=== PATIENT | female | born 1980 | race American Indian/Alaskan Native ===

== ENCOUNTER 2021-09-05 11:26 | Emergency (ER) | payer SELFPAY | END 2021-09-05 14:58 | LOC: ED 11:26 | DX: R51.9 Headache, unspecified (principal); Z53.21 Procedure and treatment not carried out due to patient leaving prior to being seen by health care provider ==

== ENCOUNTER 2021-09-06 03:42 | Emergency (ER) | payer SELFPAY ==
[2021-09-06 04:44] LABS: Basophils % (Auto) 0.2 % (0.0-1.8); Eosinophils # (Auto) 0.1 K/mm3 (0.0-0.4); Eosinophils % (Auto) 0.9 % (0.0-4.3); Hematocrit 39.3 % (30.3-42.9); Hemoglobin 12.6 gm/dl (10.1-14.3); Lymphocytes # (Auto) 1.6 K/mm3 (1.2-5.4); Lymphocytes % (Auto) 9.7 % (13.4-35.0); Mean Corpuscular HGB Conc 32 % (30-34); Mean Corpuscular Volume 83 fl (79-97); Monocytes # (Auto) 1.3 K/mm3 (0.0-0.8); Monocytes % (Auto) 7.8 % (0.0-7.3); Platelet Count 450 K/mm3 (140-440); Red Blood Count 4.72 M/mm3 (3.65-5.03)
[2021-09-06 05:00] LABS: BUN/Creatinine Ratio 18; Blood Urea Nitrogen 16 mg/dL (7-17); Calcium 9.1 mg/dL (8.4-10.2); Hemolysis Index 7
[2021-09-06 06:18] LABS: Amphetamine Screen,Urine Negative; Benzodiazepines Screen,Urine Negative; Cannabinoid Screen,Urine Negative; Cocaine Screen,Urine Negative; Methadone Screen,Urine Negative; Opiate Screen,Urine Negative
[2021-09-06 06:22] LABS: Bacteria,Urine 1+ /HPF (Negative); Bilirubin,Urine NEG (Negative); Blood,Urine SM (Negative); Color,Urine Yellow (Yellow); Protein,Urine <15 mg/dL mg/dL (Negative); Urobilinogen,Urine < 2.0 mg/dL (<2.0)
--- NOTE | 2021-09-06 06:42 | Emergency Department Report ---
<SCOTTIE YIN - Last Filed: 09/06/21 12:28> ED Psych HPI - General Chief Complaint: Psych Stated Complaint: SUICIDAL IDEATIONS Time Seen by Provider: 09/06/21 06:10 Source: patient, EMS Mode of arrival: Ambulatory - History of Present Illness Initial Comments: 41-year-old female with a history of anxiety and depression who now presents wit h intermittent suicidal ideation has been going on for about 6 months. Patient says "I just do not want to live in this world anymore". No homicidal ideation reported. No other modifying or associated factors. - Related Data Previous Rx's Medication Instructions Recorded Last Taken Type Quetiapine Fumarate [SEROquel] 50 mg PO QHS 30 Days #30 09/07/21 Unknown Rx lamoTRIgine [LaMICtal] 100 mg PO QDAY 30 Days #30 tab 09/07/21 Unknown Rx Allergies Allergy/AdvReac Type Severity Reaction Status Date / Time No Known Allergies Allergy Verified 09/06/21 03:49 ED Review of Systems Comment: All other systems reviewed and negative Psychiatric: anxiety, depression, suicidal thoughts. denies: homicidal thoughts ED Past Medical Hx - Past Medical History Additional medical history: bipolar schizo - Medications Home Medications: Home Medications Medication Instructions Recorded Confirmed Last Taken Type Quetiapine Fumarate [SEROquel] 50 mg PO QHS 30 Days #30 09/07/21 Unknown Rx lamoTRIgine [LaMICtal] 100 mg PO QDAY 30 Days #30 tab 09/07/21 Unknown Rx ED Physical Exam - General Limitations: No Limitations General appearance: alert, in no apparent distress - Head Head exam: Present: atraumatic, normal inspection - Eye Eye exam: Present: normal appearance Pupils: Present: normal accommodation - ENT ENT exam: Present: normal exam - Neck Neck exam: Present: normal inspection - Respiratory Respiratory exam: Present: normal lung sounds bilaterally. Absent: respiratory distress, accessory muscle use - Cardiovascular Cardiovascular Exam: Present: regular rate, normal rhythm, normal heart sounds - GI/Abdominal GI/Abdominal exam: Present: soft, normal bowel sounds. Absent: distended, tenderness - Extremities Exam Extremities exam: Present: normal inspection, normal capillary refill - Back Exam Back exam: Absent: tenderness - Neurological Exam Neurological exam: Present: alert, oriented X3 - Psychiatric Psychiatric exam: Present: normal affect, normal mood - Skin Skin exam: Present: rash (right arm rash ) ED Course - Reevaluation(s) Reevaluation #1: 09/06/21 06:41 here with SI without any HI -- will go ahead and order routine psych workup and have patient seen by psychiatry this AM-- Reevaluation #2: 09/06/21 12:28 Pt seen by psych and agreed with 1013 -- and recommend medication treatment at this point ED Medical Decision Making - Lab Data Result diagrams: 09/06/21 04:02 09/06/21 04:02 ED Disposition Clinical Impression: Suicidal ideation Disposition: 01 HOME / SELF CARE / HOMELESS Is pt being admited?: No Does the pt Need Aspirin: No Condition: Stable Instructions: Suicidal Feelings: How to Help Yourself Additional Instructions: Professional and Agency Contacts To help [facility] (29/10) [place] Crisis Line: Suicide Prevention Line: Crisis Text Line: Text START to 174561 Emergency: 911 Outpatient [facility] Behavioral Health Resources: [facility]: [facility] [address], [place] [address] [facility] [address] [place] [address] Saturday thru Saturday - 8am - 5pm Call to schedule an assessment for mental health and substance abuse programs [facility] Address: [address] [place] [address] Saturday thru Saturday- 7am-2pm [facility] Address: [address] [place] [address] Saturday thru Saturday: 8:30AM-5PM Prescriptions: Quetiapine Fumarate [SEROquel] 50 mg PO QHS 30 Days #30 lamoTRIgine [LaMICtal] 100 mg PO QDAY 30 Days #30 tab Referrals: PRIMARY CARE, [Primary Care Provider] - 3-5 Days <CLIFTON BARKSDALE - Last Filed: 09/07/21 16:35> ED Review of Systems ROS: Stated complaint: SUICIDAL IDEATIONS Other details as noted in HPI ED Course Vital Signs 09/06/21 09/06/21 09/06/21 03:45 06:09 10:43 Temperature 98 F 98.1 F Pulse Rate 120 H 93 H Respiratory 16 17 Rate Blood Pressure 150/90 99/59 [Left] O2 Sat by Pulse 97 98 97 Oximetry 09/06/21 09/07/21 09/07/21 20:14 03:47 10:33 Temperature 99.1 F 98.5 F 97.2 F L Pulse Rate 90 82 86 Respiratory 18 18 20 Rate Blood Pressure 95/52 106/56 122/65 [Left] O2 Sat by Pulse 96 96 98 Oximetry - Reevaluation(s) Reevaluation #3: 09/07/21 15:52 I have rounded on patient evaluated patient. Patient is now psychiatrically cleared. 1013 will be discontinued, patient to be discharged. ED Medical Decision Making - Lab Data Result diagrams: 09/06/21 14:34 09/06/21 04:02 Critical care attestation.: If time is entered above; I have spent that time in minutes in the direct care of this critically ill patient, excluding procedure time. ED Disposition Is pt being admited?: No Does the pt Need Aspirin: No
--- NOTE | 2021-09-06 10:36 | Consultation ---
History of Present Illness - Reason for Consult Consult date: 09/06/21 Reason for consult: suicidal ideation - History of Present Psychiatric Illness The patient is a 41 year old female with history of bipolar, anxiety and substance abuse who presents to the ED with suicidal ideation. In my encounter with the patient, she is calm, alert and oriented x3. The patient reports on going depression x 6 months and daily use of aerosol, at least 10 cans per day; she reports inhaling aerosol x 2years now. The patient is homeless and endorses suicidal ideation stating " I don't want to be here anymore, I'm just tired." She denies hallucinations. PAST PSYCHIATRIC HISTORY: Diagnoses: bipolar, anxiety, substance abuse Suicide attempts or Self-harm behavior:Yes Prior psychiatric hospitalizations: Yes Substance Abuse history: Denies Previous psychiatric medications tried:Computer duster, Aerosol Outpatient treatment:Unknown PAST MEDICAL HISTORY: None reported or document Family Psychiatric History: None reported or documented SOCIAL HISTORY Marital Status: single Living Arrangements: Homeless Employment Status:Unemployed Access to guns/weapons: Denies Education:some 12th grade History of Abuse: Denies Legal History: Denies REVIEW OF SYSTEMS Constitutional: Negative for weight loss ENT: Negative for stridor Respiratory: Negative for cough or hemoptysis All other systems reviewed and are negative MENTAL STATUS EXAMINATION General Appearance and Behavior: Age appropriate, wearing appropriate clothes, cooperative, polite with questioning, good eye contact, calm, polite Cooperation: cooperative Psychomotor Behavior: Psychomotor normal Mood: Depressed Affect and affective range: Congruent with stated mood Thought Process: Goal directed Thought Content:Suicidal Speech: Normal volume, Regular rate and rhythm Suicidal Ideation: Yes Homicidal Ideation: Denies Hallucination: Denies Delusions: None Impulse Control: limited Insight and Judgment: Limited Insight and poor judgment Memory: intact Attention: attentive Orientation: Alert and oriented Diagnoses: Bipolar Treatment Plan 1013 Continue home meds Depakote DrSahil 250mg po BID Seroquel 50mg po QHS PSYCHOTHERAPY: Supportive psychotherapy provided MEDICAL: Per primary team DELIRIUM PRECAUTIONS: Please re-orient patient frequently, keep lights on during the day, and minimize benzodiazepines and opiates as these medications could worsen patient's confusion. STATE ARCHIVIST: Per medical team DISPOSITION: Recommend acute psychiatric inpatient treatment. Will follow. Thank you for the consult. Case staffed with Dr. Rhodes Medications and Allergies Medications and Allergies Allergies Allergy/AdvReac Type Severity Reaction Status Date / Time No Known Allergies Allergy Verified 09/06/21 03:49 Mental Status Exam - Vital signs Last Vital Signs Temp 98 F 09/06/21 03:45 Pulse 120 H 09/06/21 03:45 Resp 16 09/06/21 03:45 BP 150/90 09/06/21 03:45 Pulse Ox 98 09/06/21 06:09 Results Result Diagrams: 09/06/21 04:02 09/06/21 04:02 Abnormal lab results 09/06/21 09/06/21 09/06/21 Range/Units 04:02 04:02 04:02 WBC (4.5-11.0) K/mm3 MCH (28-32) pg Plt Count (140-440) K/mm3 Lymph % (Auto) (13.4-35.0) % Placer % (Auto) (0.0-7.3) % Placer # (Auto) (0.0-0.8) K/mm3 Seg Neutrophils % (40.0-70.0) % Seg Neutrophils # (1.8-7.7) K/mm3 Sodium 136 L (137-145) mmol/L Carbon Dioxide 21 L (22-30) mmol/L Glucose 194 H (65-100) mg/dL Salicylates < 0.3 L (2.8-20.0) mg/dL Acetaminophen 5.0 L (10.0-30.0) ug/mL 09/06/21 Range/Units 04:02 WBC 16.5 H (4.5-11.0) K/mm3 MCH 27 L (28-32) pg Plt Count 450 H (140-440) K/mm3 Lymph % (Auto) 9.7 L (13.4-35.0) % Placer % (Auto) 7.8 H (0.0-7.3) % Placer # (Auto) 1.3 H (0.0-0.8) K/mm3 Seg Neutrophils % 81.4 H (40.0-70.0) % Seg Neutrophils # 13.4 H (1.8-7.7) K/mm3 Sodium (137-145) mmol/L Carbon Dioxide (22-30) mmol/L Glucose (65-100) mg/dL Salicylates (2.8-20.0) mg/dL Acetaminophen (10.0-30.0) ug/mL All other labs normal.
[2021-09-06] MEDS: DIVALPROEX DR 250 MG TAB PO SCH (14:16)
[2021-09-06 14:52] LABS: Basophils # (Auto) 0.1 K/mm3 (0.0-0.1); Basophils % (Auto) 0.9 % (0.0-1.8); Eosinophils # (Auto) 0.4 K/mm3 (0.0-0.4); Eosinophils % (Auto) 2.9 % (0.0-4.3); Hematocrit 35.9 % (30.3-42.9); Hemoglobin 11.7 gm/dl (10.1-14.3); Lymphocytes % (Auto) 14.4 % (13.4-35.0); Mean Corpuscular HGB Conc 33 % (30-34); Mean Corpuscular Volume 83 fl (79-97); Monocytes # (Auto) 1.5 K/mm3 (0.0-0.8); Monocytes % (Auto) 11.2 % (0.0-7.3); Platelet Count 416 K/mm3 (140-440); Red Blood Count 4.34 M/mm3 (3.65-5.03); Red Cell Distribution Width 14.5 % (13.2-15.2)
[2021-09-06] MEDS ORDERED: QUEtiapine 25 MG TAB PO SCH (22:00)
[2021-09-07 10:42] VITALS: BP 122/65
[2021-09-07] MEDS: DIVALPROEX DR 250 MG TAB PO SCH (10:53)
--- NOTE | 2021-09-07 10:57 | Progress Note ---
Subjective - Reason for Consult Consult date: 09/07/21 Reason for consult: mental health evaluation - Chief Complaint Chief complaint: The patient was seen this morning. She reports not doing well " dreaming of Aerosol." The patient denies any current suicidal/homicidal ideation and denies hallucinations. REVIEW OF SYSTEMS Constitutional: Negative for weight loss ENT: Negative for stridor Respiratory: Negative for cough or hemoptysis All other systems reviewed and are negative MENTAL STATUS EXAMINATION General Appearance and Behavior: Age appropriate, wearing appropriate clothes, cooperative, polite with questioning, good eye contact, calm, polite Cooperation: cooperative Psychomotor Behavior: Psychomotor normal Mood: Depressed Affect and affective range: Congruent with stated mood Thought Process: Goal directed Thought Content:Reality oriented Speech: Normal volume, Regular rate and rhythm Suicidal Ideation: Denies Homicidal Ideation: Denies Hallucination: Denies Delusions: None Impulse Control: limited Insight and Judgment: Limited Insight and poor judgment Memory: intact Attention: attentive Orientation: Alert and oriented Diagnoses: Bipolar Treatment Plan Dc 1013 Case management Continue home meds lamictal 100mg po daily Seroquel 50mg po QHS PSYCHOTHERAPY: Supportive psychotherapy provided MEDICAL: Per primary team DELIRIUM PRECAUTIONS: Please re-orient patient frequently, keep lights on during the day, and minimize benzodiazepines and opiates as these medications could worsen patient's confusion. 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 Clay Press Operator will provide patient with outpatient resources. Will sign off. Thank you for the consult. Case staffed with Dr. Rhodes Medications and Allergies Mental Status Exam - Vital signs Last Vital Signs Temp 97.2 F L 09/07/21 10:33 Pulse 86 09/07/21 10:33 Resp 20 09/07/21 10:33 BP 122/65 09/07/21 10:33 Pulse Ox 98 09/07/21 10:33
== END 2021-09-07 17:05 | disposition home or self-care (01) ==
LOC: ED 03:42 → EEVIPCON 03:42 → ED 09-07 17:05
DX: R45.851 Suicidal ideations (principal); Z20.822 Contact with and (suspected) exposure to COVID-19
CPT/HCPCS: 36415; 80048; 80307; 81001; 85025; 99284; U0003; 80320; G0480